=== PATIENT | female | born 1985 | race Caucasian/White ===

== ENCOUNTER 2023-03-17 14:44 | Observation (INO) ==
--- NOTE | 2023-03-17 15:34 | ED.ABDFE ---
HPI Time Seen Time Seen by Provider: 03/17/23 15:34 PCP Primary Care Physician: MARIA GUADALUPE Ventura Complaint Chief Complaint:: Patient had RLQ pain radiating to her back this AM at the gym this AM. Saw MARIA GUADALUPE Ventura and had a CT revealing exessive fluid in the pelvic, liver, spleen greater than typical than for this age. Recommended ultrasound. 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 Family History History of Family Medical Conditions: Yes Family Medical History: Diabetes Mellitus and Hypertension Social History Does patient currently use any type of tobacco product: No Have you used tobacco products in the last 12 months: No Type of Tobacco Use: None Does any household member use tobacco: No Alcohol Use: None Do you use any recreational Drugs:: No Lives With: Spouse Lives Where: Home Travel Risk Coronavirus risk:travel/contact w/high risk person: No Has patient experienced Coronavirus symptoms: No Infectious screening In the last 2 months have you had wt loss of >10#?: NO Have you had fever, night sweats or hemotysis?: No Have you traveled outside the country in the last 6 months?: No Isolation: Standard PE Vital Signs Vitals: Pulse Rate 88 Respiratory Rate 20 Blood Pressure [Left Arm] 121/60 Blood Pressure 93/56 O2 Sat by Pulse Oximetry 99 ROR Labs Reviewed Result Diagrams: 03/20/23 05:10 03/20/23 05:10 Laboratory: WBC 17.2 X10^3/uL (3.6-10.0) H 03/17/23 16:00 RBC 4.45 X10^6/uL (3.5-5.4) 03/17/23 16:00 Hgb 11.7 g/dL (12.0-16.0) L 03/17/23 16:00 Hct 35.9 % (36.0-47.0) L 03/17/23 16:00 MCV 80.7 fL (80.0-100.0) 03/17/23 16:00 MCH 26.4 pg (27.0-34.0) L 03/17/23 16:00 MCHC 32.7 g/dL (33.0-35.0) L 03/17/23 16:00 RDW 13.4 % (11.6-16.5) 03/17/23 16:00 Plt Count 313 X10^3/uL (150.0-450.0) 03/17/23 16:00 Plt Count Comment Adequate (ADEQUATE) 03/17/23 16:00 MPV 7.7 fL (7.4-11.0) 03/17/23 16:00 Neut % (Auto) 93.4 % (42.0-75.0) H 03/17/23 16:00 Lymph % (Auto) 4.6 % (21.0-51.0) L 03/17/23 16:00 [place] % (Auto) 1.5 % (0.0-13.0) 03/17/23 16:00 Eos % (Auto) 0.1 % (0.9-2.9) L 03/17/23 16:00 Baso % (Auto) 0.4 % (0.2-1.0) 03/17/23 16:00 Neut # (Auto) 16.1 x10^3/uL (2.2-4.8) H 03/17/23 16:00 Lymph # (Auto) 0.8 X10^3/uL (1.3-2.9) L 03/17/23 16:00 [place] # (Auto) 0.3 x10^3/uL (0.3-0.8) 03/17/23 16:00 Eos # (Auto) 0.0 x10^3/uL (0.0-0.2) 03/17/23 16:00 Baso # (Auto) 0.1 X10^3/uL (0.0-0.1) 03/17/23 16:00 Absolute Nucleated RBC 0.0 /100WBC 03/17/23 16:00 Total Counted 100 03/17/23 16:00 Neutrophils % (Manual) 99 % (39-76) H 03/17/23 16:00 Lymphocytes % (Manual) 1 % (13-43) L 03/17/23 16:00 Plt Morphology Comment Normal (NORMAL) 03/17/23 16:00 RBC Morphology Normal (NORMAL) 03/17/23 16:00 HCG, Qual Positive >10 mIU/mL 03/17/23 16:00 HCG, Quant 49 mIU/mL (0-6) H 03/17/23 16:00 Specimen Type Clean catch urine 03/17/23 16:31 Urine Color Yellow (YELLOW) 03/17/23 16:31 Urine Appearance Clear (CLEAR) 03/17/23 16:31 Urine pH 7.0 (5.0 - 8.0) 03/17/23 16:31 Ur Specific [place] 1.015 (1.000-1.030) 03/17/23 16:31 Urine Protein 1+ (NEGATIVE) 03/17/23 16:31 Urine Glucose (UA) Negative (NEGATIVE) 03/17/23 16:31 Urine Ketones Negative (NEGATIVE) 03/17/23 16:31 Urine Blood Negative (NEGATIVE) 03/17/23 16:31 Urine Nitrite Negative (NEGATIVE) 03/17/23 16:31 Urine Bilirubin Negative (NEGATIVE) 03/17/23 16:31 Urine Urobilinogen Normal (NORMAL) 03/17/23 16:31 Ur Leukocyte Esterase Negative (NEGATIVE) 03/17/23 16:31 Urine RBC 0-2 /HPF (0-3) 03/17/23 16:31 Urine WBC 0-2 /HPF (0-5) 03/17/23 16:31 Ur Squamous Epith Cells Few /HPF (NEGATIVE) 03/17/23 16:31 Urine Bacteria Trace /HPF (NEGATIVE) 03/17/23 16:31 Ur Culture Indicated? No/not indicated 03/17/23 16:31 Opioid Opioid Risk Tool Age ([place] box if 16-45): Yes History of Preadolescent Sexual Abuse: No Total: 1 Total Score Risk Category: Low Risk Copyright: Saud STONE predicting aberrant behaviors Discharge Plan Diagnosis Discharge Problem: Abdominal pain, Pelvic fluid collection, Discharge Plan Patient Disposition: ADMITTED INPATIENT Condition: Stable Orders to Discharge Patient Discharge Orders: Discharge (Routine); Ordered 03/20/23 Ordered By: FRED ANDRES
[2023-03-17] MEDS ORDERED: NS 1,000 ML IV 1,000 ML ONE (15:56)
[2023-03-17] MEDS ORDERED: NS 1,000 ML IV 1,000 ML IV ONE (16:06)
[2023-03-17 16:13] LABS: BASOPHILS # (AUTO) 0.1 X10^3/uL (0.0-0.1); BASOPHILS % (AUTO) 0.4 % (0.2-1.0); EOSINOPHILS % (AUTO) 0.1 % (0.9-2.9); HEMATOCRIT 35.9 % (36.0-47.0); HEMOGLOBIN 11.7 g/dL (12.0-16.0); LYMPHOCYTES # (AUTO) 0.8 X10^3/uL (1.3-2.9); LYMPHOCYTES % (AUTO) 4.6 % (21.0-51.0); MEAN CORPUSCULAR HEMOGLOBIN 26.4 pg (27.0-34.0); MEAN CORPUSCULAR HGB CONC 32.7 g/dL (33.0-35.0); MEAN CORPUSCULAR VOLUME 80.7 fL (80.0-100.0); MEAN PLATELET VOLUME 7.7 fL (7.4-11.0); MONOCYTES # (AUTO) 0.3 x10^3/uL (0.3-0.8); MONOCYTES % (AUTO) 1.5 % (0.0-13.0); NEUTROPHILS # (AUTO) 16.1 x10^3/uL (2.2-4.8); NEUTROPHILS % (AUTO) 93.4 % (42.0-75.0); PLATELET COUNT 313 X10^3/uL (150.0-450.0); RED BLOOD COUNT 4.45 X10^6/uL (3.5-5.4); RED CELL DISTRIBUTION WIDTH 13.4 % (11.6-16.5); WHITE BLOOD COUNT 17.2 X10^3/uL (3.6-10.0)
[2023-03-17 16:21] LABS: SERUM PREGNANCY TEST, QUAL POSITIVE >10 mIU/mL
[2023-03-17 16:32] LABS: PLATELET MORPHOLOGY COMMENT NORMAL (NORMAL)
[2023-03-17 16:43] LABS: BILIRUBIN,URINE NEGATIVE (NEGATIVE); BLOOD/HEMOGLOBIN,URINE NEGATIVE (NEGATIVE); GLUCOSE, URINE NEGATIVE (NEGATIVE); KETONES,URINE NEGATIVE (NEGATIVE); LEUKOCYTE ESTERASE ,URINE NEGATIVE (NEGATIVE); NITRITES,URINE NEGATIVE (NEGATIVE); PROTEIN,URINE 1+ (NEGATIVE); UROBILINOGEN,URINE NORMAL (NORMAL)
[2023-03-17 16:54] LABS: APPEARANCE,URINE CLEAR (CLEAR); BACTERIA,URINE TRACE /HPF (NEGATIVE); COLOR,URINE YELLOW (YELLOW); RBC,URINE 0-2 /HPF (0-3); SQUAMOUS EPITHELIAL CELL,UR FEW /HPF (NEGATIVE)
[2023-03-17] MEDS ORDERED: TORADOL 30 MG VIAL ONE (17:23)
[2023-03-17] MEDS ORDERED: ZOFRAN INJ 4 MG VIAL ONE (17:23)
[2023-03-17] MEDS ORDERED: ZOFRAN INJ 4 MG VIAL IVP PRN (17:24)
[2023-03-17] MEDS ORDERED: TORADOL 30 MG VIAL IVP PRN (17:25)
[2023-03-17] MEDS ORDERED: ANCEF VIAL 1 GRAM ONE (17:28)
[2023-03-17] MEDS ORDERED: NS 100 ML IV 100 ML ONE ×2 (17:28→20:33)
[2023-03-17] MEDS ORDERED: D5 1/2 NS 1,000 ML 1,000 ML IV ONE (17:29)
[2023-03-17] MEDS: D5 1/2 NS 1,000 ML 1,000 ML IV SCH (17:42)
[2023-03-17] MEDS: ANCEF VIAL 1 GRAM IVP SCH ×3 (17:43→21:40)
[2023-03-17] MEDS ORDERED: ZOFRAN INJ 4 MG VIAL IVP ONE (19:52)
[2023-03-17] MEDS ORDERED: PERCOCET TAB 5/325 MG PO ONE ×2 (20:00→20:02)
[2023-03-17 20:18] LABS: HEMATOCRIT 32.7 % (36.0-47.0); HEMOGLOBIN 10.8 g/dL (12.0-16.0)
[2023-03-17 22:12] VITALS: BMI 26.6
[2023-03-18] MEDS: TORADOL 30 MG VIAL IVP PRN ×2 (04:23→15:40)
[2023-03-18] MEDS: D5 1/2 NS 1,000 ML 1,000 ML IV SCH ×4 (04:55→19:32)
[2023-03-18 05:13] LABS: BASOPHILS # (AUTO) 0.1 X10^3/uL (0.0-0.1); BASOPHILS % (AUTO) 0.8 % (0.2-1.0); EOSINOPHILS # (AUTO) 0.3 x10^3/uL (0.0-0.2); EOSINOPHILS % (AUTO) 3.2 % (0.9-2.9); HEMATOCRIT 27.4 % (36.0-47.0); HEMOGLOBIN 9.3 g/dL (12.0-16.0); LYMPHOCYTES # (AUTO) 2.4 X10^3/uL (1.3-2.9); LYMPHOCYTES % (AUTO) 25.4 % (21.0-51.0); MEAN CORPUSCULAR HEMOGLOBIN 27.3 pg (27.0-34.0); MEAN CORPUSCULAR HGB CONC 34.1 g/dL (33.0-35.0); MEAN CORPUSCULAR VOLUME 80.3 fL (80.0-100.0); MEAN PLATELET VOLUME 7.9 fL (7.4-11.0); MONOCYTES # (AUTO) 0.7 x10^3/uL (0.3-0.8); MONOCYTES % (AUTO) 7.7 % (0.0-13.0); NEUTROPHILS % (AUTO) 62.9 % (42.0-75.0); PLATELET COUNT 257 X10^3/uL (150.0-450.0); RED BLOOD COUNT 3.41 X10^6/uL (3.5-5.4); RED CELL DISTRIBUTION WIDTH 13.5 % (11.6-16.5); WHITE BLOOD COUNT 9.5 X10^3/uL (3.6-10.0)
[2023-03-18 05:25] LABS: ALANINE AMINOTRANSFERASE 26 Units/L (12-78); ALBUMIN 2.8 g/dL (3.4-5.0); ALKALINE PHOSPHATASE 43 Units/L (46-116); ASPARTATE AMINO TRANSFERASE 11 Units/L (15-37); BLOOD UREA NITROGEN 4 mg/dL (7-18); CALCIUM 7.6 mg/dL (8.5-10.1); CARBON DIOXIDE 27.2 mmol/L (21-32); CHLORIDE 108 mmol/L (98-107); COR CA(FOR HYPOALB) 8.6 mg/dL (8.5-10.1); CREATININE 0.71 mg/dL (0.55-1.02); GLUCOSE 87 mg/dL (65-99); POTASSIUM 3.8 mmol/L (3.5-5.1); SODIUM 140 mmol/L (136-145); TOTAL PROTEIN 5.2 g/dL (6.4-8.2); eGFR NON BLACK RACES > 60 (>60)
[2023-03-18 05:31] LABS: HCG,QUANTITATIVE 41 mIU/mL (0-6)
[2023-03-18] MEDS ORDERED: NS 100 ML IV 100 ML ONE ×2 (05:32→20:20)
[2023-03-18] MEDS: ANCEF VIAL 1 GRAM IVP SCH ×3 (05:42→21:04)
[2023-03-18] MEDS: PERCOCET TAB 5/325 MG PO PRN (12:40)
--- NOTE | 2023-03-18 12:49 | DR.PROGNOT ---
HOSPITAL PROGRESS NOTE Progress Note for Day of: Progress Note Date: 03/18/23 Chief Complaint Chief Complaint: Still having diffuse abdominal pain both left and right side. No nausea or vomiting, patient is feeling hungry today Hemoglobin is 9.3. White count 9.5. hCG 41 which is still elevated. Pelvic ultrasound is not done yet. Past Medical Family Social History Allergies: Allergies No Known Allergies Allergy (Verified 03/18/23 09:07) Review Of Systems ROS: No change since H&P Vital Signs Vital Signs: Temperature 97.8 F Pulse Rate [Brachial] 81 Pulse Rate 88 Respiratory Rate 18 Blood Pressure [Right Arm] 92/51 Blood Pressure [Left Arm] 121/60 Blood Pressure 93/56 O2 Sat by Pulse Oximetry 97 Physical Exam Oriented: Normal Respiratory: Normal Cardiovascular: Normal GI:Auscultation: Normal GI: Tenderness: Diffuse (The abdomen is soft and flat with diffuse tenderness without rebound tenderness.) Speech Pattern: Clear and Appropriate Laboratory and Diagnostics Result Diagrams: 03/18/23 04:45 03/18/23 04:45 Labs: Laboratory WBC 9.5 X10^3/uL (3.6-10.0) 03/18/23 04:45 RBC 3.41 X10^6/uL (3.5-5.4) L 03/18/23 04:45 Hgb 9.3 g/dL (12.0-16.0) L 03/18/23 04:45 Hct 27.4 % (36.0-47.0) L 03/18/23 04:45 MCV 80.3 fL (80.0-100.0) 03/18/23 04:45 MCH 27.3 pg (27.0-34.0) 03/18/23 04:45 MCHC 34.1 g/dL (33.0-35.0) 03/18/23 04:45 RDW 13.5 % (11.6-16.5) 03/18/23 04:45 Plt Count 257 X10^3/uL (150.0-450.0) 03/18/23 04:45 Plt Count Comment Adequate (ADEQUATE) 03/17/23 16:00 MPV 7.9 fL (7.4-11.0) 03/18/23 04:45 Neut % (Auto) 62.9 % (42.0-75.0) 03/18/23 04:45 Lymph % (Auto) 25.4 % (21.0-51.0) 03/18/23 04:45 [place] % (Auto) 7.7 % (0.0-13.0) 03/18/23 04:45 Eos % (Auto) 3.2 % (0.9-2.9) H 03/18/23 04:45 Baso % (Auto) 0.8 % (0.2-1.0) 03/18/23 04:45 Neut # (Auto) 6.0 x10^3/uL (2.2-4.8) H 03/18/23 04:45 Lymph # (Auto) 2.4 X10^3/uL (1.3-2.9) 03/18/23 04:45 [place] # (Auto) 0.7 x10^3/uL (0.3-0.8) 03/18/23 04:45 Eos # (Auto) 0.3 x10^3/uL (0.0-0.2) H 03/18/23 04:45 Baso # (Auto) 0.1 X10^3/uL (0.0-0.1) 03/18/23 04:45 Absolute Nucleated RBC 0.0 /100WBC 03/18/23 04:45 Total Counted 100 03/17/23 16:00 Neutrophils % (Manual) 99 % (39-76) H 03/17/23 16:00 Lymphocytes % (Manual) 1 % (13-43) L 03/17/23 16:00 Plt Morphology Comment Normal (NORMAL) 03/17/23 16:00 RBC Morphology Normal (NORMAL) 03/17/23 16:00 Sodium 140 mmol/L (136-145) 03/18/23 04:45 Corrected Sodium TNP 03/18/23 04:45 Potassium 3.8 mmol/L (3.5-5.1) 03/18/23 04:45 Chloride 108 mmol/L (98-107) H 03/18/23 04:45 Carbon Dioxide 27.2 mmol/L (21-32) 03/18/23 04:45 BUN 4 mg/dL (7-18) L 03/18/23 04:45 Creatinine 0.71 mg/dL (0.55-1.02) 03/18/23 04:45 Est GFR (MDRD) Af Amer > 60 (>60) 03/18/23 04:45 Est GFR (MDRD) Non-Af > 60 (>60) 03/18/23 04:45 Glucose 87 mg/dL (65-99) 03/18/23 04:45 Calcium 7.6 mg/dL (8.5-10.1) L 03/18/23 04:45 Corrected Calcium 8.6 mg/dL (8.5-10.1) 03/18/23 04:45 Total Bilirubin 0.40 mg/dL (0.2-1.0) 03/18/23 04:45 AST 11 Units/L (15-37) L 03/18/23 04:45 ALT 26 Units/L (12-78) 03/18/23 04:45 Alkaline Phosphatase 43 Units/L (46-116) L 03/18/23 04:45 Total Protein 5.2 g/dL (6.4-8.2) L 03/18/23 04:45 Albumin 2.8 g/dL (3.4-5.0) L 03/18/23 04:45 Globulin 2.4 g/dL (2.5-4.5) L 03/18/23 04:45 Albumin/Globulin Ratio 1.2 Ratio (1.1-2.1) 03/18/23 04:45 HCG, Qual Positive >10 mIU/mL 03/17/23 16:00 HCG, Quant 41 mIU/mL (0-6) H 03/18/23 04:45 Specimen Type Clean catch urine 03/17/23 16:31 Urine Color Yellow (YELLOW) 03/17/23 16:31 Urine Appearance Clear (CLEAR) 03/17/23 16:31 Urine pH 7.0 (5.0 - 8.0) 03/17/23 16:31 Ur Specific [place] 1.015 (1.000-1.030) 03/17/23 16:31 Urine Protein 1+ (NEGATIVE) 03/17/23 16:31 Urine Glucose (UA) Negative (NEGATIVE) 03/17/23 16:31 Urine Ketones Negative (NEGATIVE) 03/17/23 16:31 Urine Blood Negative (NEGATIVE) 03/17/23 16: Urine Nitrite Negative (NEGATIVE) 03/17/23 16:31 Urine Bilirubin Negative (NEGATIVE) 03/17/23 16:31 Urine Urobilinogen Normal (NORMAL) 03/17/23 16:31 Ur Leukocyte Esterase Negative (NEGATIVE) 03/17/23 16:31 Urine RBC 0-2 /HPF (0-3) 03/17/23 16:31 Urine WBC 0-2 /HPF (0-5) 03/17/23 16:31 Ur Squamous Epith Cells Few /HPF (NEGATIVE) 03/17/23 16:31 Urine Bacteria Trace /HPF (NEGATIVE) 03/17/23 16:31 Ur Culture Indicated? No/not indicated 03/17/23 16:31 Assessment and Plan 1: abdominal pain rule out ruptured ovarian cyst. 2: Positive test. History of previous tubal ligation. To have abdominal and pelvic ultrasound today . If all negative she might need diagnostic laparoscopy. Problem Patient Problems: Patient Problems (Updated 03/17/23 @ 17:49 by Kate Dailey) Abdominal pain (Acute) R10.9 Pelvic fluid collection (Acute) R18.8 (Acute) Z34.90
--- NOTE | 2023-03-18 14:48 | US ---
TRANSVAGINALHistory: Abdominal pelvic painComparison:CT March 17, 2023Technique: Multiple grayscale and color flow Doppler images of the pelvis were obtained transvaginally.Findings:The uterus measures 8.4 x 4.1 x 5.5 cm. The endometrial stripe measures 3 mm. The right ovary measures 5.4 x 3.7 x 2.3 cm. Simple 11 mm cyst. The right-sided fallopian tube appears to be possibly thickened and dilated. The technologist measures a structure in the right adnexa that appears to be solid and 9 x 6 x 6 cm without definite internal vascularity. This is not well defined on this examination. The left ovary measures 4.5 x 2.4 x 2.6 cm. Normal flow in the ovaries bilaterally. Free fluid present.IMPRESSION:1.Solid structure in the right adnexa that is not clearly defined anatomic. Differential considerations are wide and include ectopic , old hemorrhage/hematoma, solid mass or possibly developing infection although the last 2 are thought to be less likely given the lack of internal or peripheral vascularity. This will likely need to be differentiated clinically or possibly with MRI.Electronically signed by: JEAN HENDERSON (March 18, 2023 14:47:45)
--- NOTE | 2023-03-18 14:49 | US ---
GALL BLADDERHISTORY: Reason For StudyComparison: NoneTechnique: Multiple barnes scale and color flow Doppler images of the abdomen were obtained.Findings:Overall study is limited by overlying bowel gas. The liver is normal in echotexture and size. No focal mass. Perihepatic fluid is present. No intrahepatic bile duct dilatation. No gallstones.No pericholecystic fluid or gallbladder wall thickening. The technologist did not report a positive sonographic Medrano's sign. The common bile duct measures 6 mm.The right kidney measures 11.4 cm. No focal mass, hydronephrosis, or stones identified.IMPRESSION:1.Perihepatic fluid without other significant abnormality.Electronically signed by: JEAN HENDERSON (March 18, 2023 14:48:11)
[2023-03-19] MEDS: D5 1/2 NS 1,000 ML 1,000 ML IV SCH ×4 (01:06→19:12)
[2023-03-19] MEDS: TORADOL 30 MG VIAL IVP PRN (03:41)
[2023-03-19] MEDS ORDERED: NS 100 ML IV 100 ML ONE ×4 (04:57→21:15)
[2023-03-19] MEDS: ANCEF VIAL 1 GRAM IVP SCH ×3 (05:05→21:27)
[2023-03-19] MEDS ORDERED: DIPRIVAN VIAL 20 ML ONE (08:21)
[2023-03-19] MEDS ORDERED: TORADOL 30 MG VIAL ONE (08:21)
[2023-03-19] MEDS ORDERED: BRIDION ONE (08:21)
[2023-03-19] MEDS ORDERED: ZOFRAN INJ 4 MG VIAL ONE (08:21)
[2023-03-19] MEDS ORDERED: PEPCID 20 MG VIAL ONE (08:21)
[2023-03-19] MEDS ORDERED: ROBINUL ONE (08:21)
[2023-03-19] MEDS ORDERED: DECADRON INJ ONE (08:21)
[2023-03-19] MEDS ORDERED: PRECEDEX INJ VIAL IVP ONE (08:21)
[2023-03-19] MEDS ORDERED: ZEMURON 100 MG VIAL ONE (08:21)
[2023-03-19] MEDS ORDERED: OFIRMEV IV 1000 MG VIAL 1,000 MG/100 ML VIAL IV ONE (08:21)
[2023-03-19] MEDS ORDERED: FENTANYL VIAL INJ 100 mcg ONE (08:22)
[2023-03-19] MEDS ORDERED: VERSED ONE (08:22)
[2023-03-19] MEDS ORDERED: LR 1,000 ML IV 1,000 ML IV ONE ×2 (08:31→10:19)
[2023-03-19] MEDS ORDERED: ANCEF VIAL 1 GRAM ONE (08:31)
[2023-03-19] MEDS ORDERED: BACTROBAN TOPICAL OINT ONE (08:37)
[2023-03-19] MEDS ORDERED: LACRI-LUBE S.O.P. ONE (09:13)
[2023-03-19] MEDS ORDERED: DILAUDID INJ ONE (09:40)
[2023-03-19] MEDS ORDERED: BETADINE SOLN ONE (09:42)
[2023-03-19] MEDS ORDERED: ULTANE GAS IN ONE (09:53)
[2023-03-19] MEDS ORDERED: XYLOCAINE 2 % (PLAIN) ONE (09:53)
[2023-03-19] MEDS ORDERED: KETAMINE HCL ONE (09:53)
[2023-03-19] MEDS ORDERED: BARHEMSYS INJ IVP PRN (10:24)
[2023-03-19] MEDS ORDERED: BENADRYL INJ 50 MG VIAL IVP PRN (10:24)
[2023-03-19] MEDS ORDERED: DILAUDID INJ IVP PRN (10:24)
[2023-03-19] MEDS ORDERED: MORPHINE SULFATE INJ 2 MG INJ IVP PRN (10:46)
[2023-03-19] MEDS: MORPHINE SULFATE INJ 4 MG IVP PRN ×2 (12:01→18:36)
[2023-03-19] MEDS: PERCOCET TAB 5/325 MG PO PRN (15:03)
[2023-03-20] MEDS: D5 1/2 NS 1,000 ML 1,000 ML IV SCH (02:31)
[2023-03-20] MEDS: TORADOL 30 MG VIAL IVP PRN (04:47)
[2023-03-20] MEDS: ANCEF VIAL 1 GRAM IVP SCH (05:24)
[2023-03-20] MEDS: PERCOCET TAB 5/325 MG PO PRN (05:47)
[2023-03-20 06:02] LABS: BASOPHILS # (AUTO) 0.1 X10^3/uL (0.0-0.1); BASOPHILS % (AUTO) 0.4 % (0.2-1.0); HEMATOCRIT 26.1 % (36.0-47.0); HEMOGLOBIN 8.8 g/dL (12.0-16.0); LYMPHOCYTES # (AUTO) 1.4 X10^3/uL (1.3-2.9); LYMPHOCYTES % (AUTO) 9.5 % (21.0-51.0); MEAN CORPUSCULAR HEMOGLOBIN 27.2 pg (27.0-34.0); MEAN CORPUSCULAR HGB CONC 33.9 g/dL (33.0-35.0); MEAN CORPUSCULAR VOLUME 80.2 fL (80.0-100.0); MEAN PLATELET VOLUME 8.3 fL (7.4-11.0); MONOCYTES # (AUTO) 0.9 x10^3/uL (0.3-0.8); NEUTROPHILS # (AUTO) 12.4 x10^3/uL (2.2-4.8); NEUTROPHILS % (AUTO) 84.1 % (42.0-75.0); PLATELET COUNT 241 X10^3/uL (150.0-450.0); RED BLOOD COUNT 3.25 X10^6/uL (3.5-5.4); RED CELL DISTRIBUTION WIDTH 13.2 % (11.6-16.5); WHITE BLOOD COUNT 14.8 X10^3/uL (3.6-10.0)
[2023-03-20 06:17] LABS: ALANINE AMINOTRANSFERASE 19 Units/L (12-78); ALBUMIN 2.7 g/dL (3.4-5.0); ALKALINE PHOSPHATASE 37 Units/L (46-116); ASPARTATE AMINO TRANSFERASE 16 Units/L (15-37); BLOOD UREA NITROGEN 3 mg/dL (7-18); CALCIUM 7.8 mg/dL (8.5-10.1); CARBON DIOXIDE 26.8 mmol/L (21-32); CHLORIDE 105 mmol/L (98-107); COR CA(FOR HYPOALB) 8.8 mg/dL (8.5-10.1); CREATININE 0.54 mg/dL (0.55-1.02); GLUCOSE 98 mg/dL (65-99); SODIUM 138 mmol/L (136-145); TOTAL PROTEIN 5.4 g/dL (6.4-8.2); eGFR NON BLACK RACES > 60 (>60)
[2023-03-20 06:23] LABS: SERUM PREGNANCY TEST, QUAL POSITIVE >10 mIU/mL
[2023-03-20] MEDS ORDERED: PROTONIX INJ 40 MG VIAL IVP SCH (09:00)
[2023-03-20 10:13] VITALS: BP 96/53
== END 2023-03-20 11:30 | disposition home or self-care (01) ==
LOC: ER 14:44 → MED/SURG 14:44
PROVIDERS: ADMIT Surgery; ATTEND Surgery
DX: R18.8 Other ascites; R10.84 Generalized abdominal pain; K36 Other appendicitis; K66.1 Hemoperitoneum; Z98.51 Tubal ligation status; O00.101 Right tubal pregnancy without intrauterine pregnancy